=== PATIENT | female | born 2000 | race Hispanic/Latino ===

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

== ENCOUNTER 2022-02-16 14:05 | Outpatient (CLI) | payer OTHER | END 2022-02-16 14:06 | disposition home or self-care (01) | LOC: CSHULT 14:05 | PROVIDERS: ATTEND Family Medicine | DX: Z34.82 Encounter for supervision of other normal pregnancy, second trimester (principal); Z3A.22 22 weeks gestation of pregnancy | CPT/HCPCS: 76805 ==

== ENCOUNTER 2022-06-08 18:01 | Day surgery (SDC) | payer OTHER ==
[2022-06-08 18:32] VITALS: BMI 31.6
[2022-06-08] MEDS ORDERED: Lactated Ringer's 1,000 ML IV SCH (20:00)
== END 2022-06-08 21:53 | disposition home or self-care (01) ==
LOC: CSHLD/OP 18:01
PROVIDERS: ATTEND Family Medicine
DX: O47.1 False labor at or after 37 completed weeks of gestation (principal); O99.013 Anemia complicating pregnancy, third trimester; D64.9 Anemia, unspecified; Z79.899 Other long term (current) drug therapy; Z3A.38 38 weeks gestation of pregnancy
CPT/HCPCS: 76819

== ENCOUNTER 2022-06-09 09:39 | Inpatient (IN) | payer OTHER ==
[2022-06-09] MEDS ORDERED: Promethazine HCl 25 MG/ML VIAL IM PRN ×2 (10:41→13:09)
[2022-06-09] MEDS ORDERED: Carboprost 250 MCG/ML AMP IM PRN (10:41)
[2022-06-09] MEDS ORDERED: Butorphanol Tartrate 1 MG/ML VIAL SLOW IVP PRN (10:41)
[2022-06-09] MEDS ORDERED: HYDROcodone/Acetaminophen 5/325 mg Tablet PO PRN ×2 (10:41→18:01)
[2022-06-09] MEDS ORDERED: Diphenoxylate HCl/Atropine Tablet PO PRN (10:41)
[2022-06-09] MEDS ORDERED: Methylergonovine 0.2 MG/ML VIAL IM PRN (10:41)
[2022-06-09] MEDS ORDERED: Ibuprofen 800 MG TAB PO PRN (10:41)
[2022-06-09] MEDS ORDERED: Ondansetron PF 4 MG/2 ML Vial IVP PRN ×3 (10:41→18:01)
[2022-06-09] MEDS ORDERED: Lidocaine 1% (PF) 30 ML VIAL SC PRN (10:41)
[2022-06-09] MEDS ORDERED: Acetaminophen 500 MG TAB PO PRN (10:41)
[2022-06-09] MEDS ORDERED: hydrALAZINE 20 MG/ML VIAL SLOW IVP PRN ×2 (10:41→18:01)
[2022-06-09] MEDS ORDERED: NS w/ Oxytocin 30 units 500 ML IV SCH ×2 (10:45)
[2022-06-09] MEDS ORDERED: Lactated Ringer's 1,000 ML IV SCH (10:45)
[2022-06-09 11:52] LABS: Hemoglobin 9.9 g/dL (12.0-15.5); Mean Corpuscular HGB CONC 31.2 g/dL (32.0-36.0); Mean Corpuscular Volume 73.5 fl (81.6-98.3); Mean Platelet Volume 10.6 fl (7.4-10.4); Platelet Count 344 10x3/uL (150-450); RBC Distribution Width 14.2 % (11.5-14.5); Red Blood Cell (RBC) Count 4.31 10x6/uL (3.90-5.03); White Blood Cell (WBC) Count 12.5 10x3/uL (3.5-10.5)
[2022-06-09 11:54] VITALS: BMI 27.9
[2022-06-09] MEDS ORDERED: Fentanyl 2 mcg/Bup 0.1% Cadd 100 ML ONE (12:03)
[2022-06-09 12:09] LABS: HBSAg Index 0.13 S/CO (0-0.99); Hep B Surf Ag Non-Reactive S/CO (NonReactive)
[2022-06-09 12:11] LABS: Syphilis Antibody Nonreactive (Nonreactive); Syphilis Antibody Index 0.03 S/CO (<1.00 Non-Reactive)
[2022-06-09 12:28] LABS: SARS-CoV-2 NAA Rapid Test Not Detected (NotDetected)
[2022-06-09] MEDS ORDERED: ePHEDrine Sulfate 50 MG/10 ML VIAL SLOW IVP PRN (13:09)
[2022-06-09] MEDS ORDERED: Naloxone HCl 0.4 mg/ml Vial IVP PRN ×2 (13:09)
[2022-06-09] MEDS ORDERED: Acetaminophen 325 MG TAB PO PRN (13:09)
[2022-06-09] MEDS ORDERED: Lactated Ringer's 500 ML IV PRN (13:09)
[2022-06-09] MEDS ORDERED: diphenhydrAMINE 50 MG/ML VIAL IVP PRN (13:09)
[2022-06-09] MEDS ORDERED: Moisturizing Cream (Eucerin) 113 GM JAR TOP PRN (13:09)
[2022-06-09] MEDS ORDERED: Communication Order-Pharmacy FS SCH (13:15)
[2022-06-09] MEDS ORDERED: Fentanyl 2 mcg/Bupivacaine 0.1% Cassette 100 ML EPIDURAL SCH (13:15)
[2022-06-09] MEDS ORDERED: Benzocaine-Menthol 82.5 ML CAN TOP PRN (18:01)
[2022-06-09] MEDS ORDERED: diphenhydrAMINE 25 MG CAP PO PRN (18:01)
[2022-06-09] MEDS ORDERED: Boostrix 0.5 ML (Tdap) VIAL (>/=7 yrs of age) IM ONE (18:01)
[2022-06-09] MEDS ORDERED: Bisacodyl 10 MG SUPP PR PRN (18:01)
[2022-06-09] MEDS ORDERED: Milk Of Magnesia 30 ML UDCUP PO PRN (18:01)
[2022-06-09] MEDS ORDERED: Ferrous Sulfate 325 MG TAB PO SCH (18:30)
[2022-06-09] MEDS: Docusate 100 MG CAP PO SCH (21:38)
[2022-06-09] MEDS: Ibuprofen 800 MG TAB PO SCH (21:39)
[2022-06-10] MEDS: Ibuprofen 800 MG TAB PO SCH ×2 (05:10→13:57)
[2022-06-10] MEDS: Ferrous Sulfate 325 MG TAB PO SCH ×2 (08:57→16:56)
[2022-06-10] MEDS: Docusate 100 MG CAP PO SCH (08:57)
[2022-06-10] MEDS ORDERED: Prenatal Vitamin 1 TAB PO SCH (09:00)
[2022-06-10 16:51] VITALS: BP 116/63; TEMP 98.4
== END 2022-06-10 18:20 | disposition home or self-care (01) | DRG 807 ==
LOC: CSHERS 09:39 → CSHLD/OP 09:39 → EDSTATUS 10:37 → CSHLD 10:41 → CSHPP 18:15
PROVIDERS: ADMIT Family Medicine; ATTEND Family Medicine
PROC: 10E0XZZ Delivery of Products of Conception, External Approach (ICD-10-PCS; principal; 2022-06-09)
PROC: 0UQMXZZ Repair Vulva, External Approach (ICD-10-PCS; 2022-06-09)
DX: O42.02 Full-term premature rupture of membranes, onset of labor within 24 hours of rupture (principal); Z37.0 Single live birth; Z20.822 Contact with and (suspected) exposure to COVID-19; Z79.899 Other long term (current) drug therapy; Z3A.37 37 weeks gestation of pregnancy; O71.82 Other specified trauma to perineum and vulva; O69.81X0 Labor and delivery complicated by cord around neck, without compression, not applicable or unspecified
CPT/HCPCS: 51702; 76819; 85027; 86780; 86850; 86900; 86901; 87340; 96360; 96361; 99282; 99285; J2590; U0002